=== PATIENT | male | born 1945 | race Caucasian/White ===

== ENCOUNTER → 2019-01-27 | Outpatient (CLI) | payer OTHER | LOC: BRMIMAGING 12:35 | PROVIDERS: ATTEND Internal Medicine | DX: E06.9 Thyroiditis, unspecified (principal) ==

== ENCOUNTER → 2019-03-14 | Outpatient (CLI) | payer OTHER | LOC: EMCIMAGING 14:20 | PROVIDERS: ATTEND Internal Medicine | DX: E23.7 Disorder of pituitary gland, unspecified (principal); E03.9 Hypothyroidism, unspecified; E27.40 Unspecified adrenocortical insufficiency; E29.1 Testicular hypofunction | CPT/HCPCS: 70553-PN ==